=== PATIENT | female | born 1985 | race Caucasian/White ===

== ENCOUNTER 2025-05-18 09:17 | Outpatient (CLI) | payer BC ==
--- NOTE | 2025-05-18 15:59 | RADIOLOGY REPORT ---
PROCEDURE: MR MRI LUMBAR SPINE INDICATION: SPONDYLOSIS W/O MYELOPATHY OR RADICULOPATHY, LUMBAR REGION Exam Date: 05/18/2025 09:20 AM COMPARISON: None TECHNIQUE: MRI lumbar spine without intravenous contrast. FINDINGS: The lumbar alignment is intact. Lumbarization of S1. There are degenerative endplate changes includi ng modic endplate changes with anterior and lateral osteophytes throughout the lumbar spine. The visu alized distal spinal cord and conus medullaris are within normal limits. The conus medullaris appear s to terminate within normal limits. The visualized retroperitoneal and paraspinal soft tissues are unremarkable. 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 The following axial levels are detailed below: T12-L1: Unremarkable. L1-L2: Unremarkable. L2-L3: Unremarkable. L3-L4: There is a moderate circumferential disc bulge with an annular tear complicated by facet art hropathy associated with mild to moderate left neuroforaminal stenosis. No significant central canal stenosis. L4-L5: There is a mild circumferential disc bulge with an annular tear. No significant central meredith l or neuroforaminal stenosis. L5-S1: There is a moderate circumferential disc bulge with an annular tear complicated by facet arth ropathy associated with mild to moderate bilateral neuroforaminal stenosis. No significant central ca nal stenosis. IMPRESSION: 1. Degenerative disease greatest in the lower lumbar spine. No significant central canal stenosis. N eural foraminal stenosis as above. Lumbarization of S1. HS:Y
== END 2025-05-18 23:59 | disposition home or self-care (01) ==
LOC: MRI02 09:17
PROVIDERS: ATTEND Physician Assistant
DX: M51.17 Intervertebral disc disorders with radiculopathy, lumbosacral region (principal); M54.51 Vertebrogenic low back pain; M48.07 Spinal stenosis, lumbosacral region; Q76.49 Other congenital malformations of spine, not associated with scoliosis
CPT/HCPCS: 72148